=== PATIENT | female | born 1970 | race African-American/Black ===

== ENCOUNTER 2019-08-31 08:42 | Emergency (ER) | payer BC ==
[2019-08-31 09:00] VITALS: BP 129/97; PULSE 70
--- NOTE | 2019-08-31 09:31 | EDM.PDOC ---
ED HPI GENERAL MEDICAL PROBLEM - General Chief Complaint: Skin Complaint Stated Complaint: PT CLAIMS SKIN INFECTION R SIDE Time Seen by Provider: 08/31/19 08:45 - History of Present Illness INITIAL COMMENTS - FREE TEXT/NARRATIVE: History of present illness: [Presents with a tender rash to her right buttocks for last 3 days. There is been no fever chills no trauma she is never had this before there is an area of pustules and redness and erythema in a cluster approximately 3 x 4 cm on the right buttocks tender to touch there is no focal abscess. Nothing makes it better or worse no medical problems no other complaints] Review of systems: As per history of present illness and below otherwise all systems reviewed and negative. Past medical history: As per history of present illness and as reviewed below otherwise noncontributory. Surgical history: As per history of present illness and as reviewed below otherwise noncontributory. Social history: No reported history of drug or alcohol abuse. Family history: As per history of present illness and as reviewed below otherwise noncontributory. Physical exam: HEENT: Atraumatic, normocephalic, pupils reactive, negative for conjunctival pallor or scleral icterus, mucous membranes moist, throat clear, neck supple, nontender, trachea midline. Lungs: Clear to auscultation, breath sounds equal bilaterally, chest nontender. Heart: S1S2, regular, negative for clicks, rubs, or JVD. Abdomen: Soft, nondistended, nontender. Negative for masses or hepatosplenomegaly. Negative for costovertebral tenderness. Pelvis: Stable nontender. Genitourinary: Deferred. Rectal: Deferred. Extremities: Atraumatic, negative for cords or calf pain. Neurovascular unremarkable. Neuro: Awake, alert, oriented. Cranial nerves II through XII unremarkable. Cerebellum unremarkable. Motor and sensory unremarkable throughout. Exam nonfocal. Skin: Cluster of pustules on the skin over the right buttocks with a base of erythema and induration no focal abscess. Diagnostics: [] Therapeutics: [] Impression: Cellulitis [] Plan: Restarted on doxycycline wound care instructions are given follow-up with primary care [] Definitive disposition and diagnosis as appropriate pending reevaluation and review of above. - Related Data Allergies Allergy/AdvReac Type Severity Reaction Status Date / Time No Known Allergies Allergy Verified 08/31/19 08:57 Home Meds: Home Meds . 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 - Infectious Disease History Infectious Disease History: Reports: None Social & Family History - Tobacco Use Smoking Status *Q: Unknown Ever Smoked - Recreational Drug Use Recreational Drug Use: No ED ROS GENERAL - Review of Systems Review Of Systems: See Below ED EXAM, SKIN/RASH Exam: See Below Course - Vital Signs Last Recorded V/S: Last Vital Signs Temp 35.6 C L 08/31/19 08:58 Pulse 70 08/31/19 08:58 Resp 17 08/31/19 08:58 BP 129/97 H 08/31/19 08:58 Pulse Ox 98 08/31/19 08:58 Departure - Departure Time of Disposition: 09:28 Disposition: Home, Self-Care 01 Condition: Good Clinical Impression: Cellulitis Qualifiers: Site of cellulitis: buttock Qualified Code(s): L03.317 - Cellulitis of buttock - Discharge Information *PRESCRIPTION DRUG MONITORING PROGRAM REVIEWED*: Not Applicable *COPY OF PRESCRIPTION DRUG MONITORING REPORT IN PATIENT [place]FF[place]: Not Applicable Instructions: Cellulitis, Adult Referrals: PCP,None [Primary Care Provider] - Additional Instructions: The following information is given to patients seen in the emergency department who are being discharged to home. This information is to outline your options for follow-up care. We provide all patients seen in our emergency department with a follow-up referral. The need for follow-up, as well as the timing and circumstances, are variable depending upon the specifics of your emergency department visit. If you don't have a primary care physician on staff, we will provide you with a referral. We always advise you to contact your personal physician following an emergency department visit to inform them of the circumstance of the visit and for follow-up with them and/or the need for any referrals to a consulting specialist. The emergency department will also refer you to a specialist when appropriate. This referral assures that you have the opportunity for follow-up care with a specialist. All of these measure are taken in an effort to provide you with optimal care, which includes your follow-up. Under all circumstances we always encourage you to contact your private physician who remains a resource for coordinating your care. When calling for follow-up care, please make the office aware that this follow-up is from your recent emergency room visit. If for any reason you are refused follow-up, please contact the [facility] at and asked to speak to the emergency department charge nurse. [facility] [address] [place] [address] [address] [address] Sepsis Event Note - Evaluation Sepsis Screening Result: No Definite Risk - Focused Exam Vital Signs: Vital Signs Temp Pulse Resp BP Pulse Ox 08/31/19 08:58 35.6 C L 70 17 129/97 H 98 Date Exam was Performed: 08/31/19 Time Exam was Performed: 09:26
== END 2019-08-31 10:09 | disposition home or self-care (01) ==
LOC: MW.ED 08:42
DX: L03.317 Cellulitis of buttock (principal)
CPT/HCPCS: 99282; 99283

== ENCOUNTER 2022-02-24 11:35 | Emergency (ER) | payer BC ==
[2022-02-24] MEDS ORDERED: Ketorolac 60 MG/2 ML SDV IM ONE (13:01)
[2022-02-24 13:13] VITALS: BP 146/98; PULSE 58
== END 2022-02-24 13:31 | disposition home or self-care (01) ==
LOC: MW.ED 11:35
DX: S39.012A Strain of muscle, fascia and tendon of lower back, initial encounter (principal)
CPT/HCPCS: 96372; 99282; J1885

== ENCOUNTER 2024-10-18 13:56 | Emergency (ER) | payer BC ==
[2024-10-18 14:13] VITALS: BP 159/102; PULSE 67
[2024-10-18] MEDS: Diphtheria,Pertussis(Acell),Tetanus Vaccine 0.5 ML Syringe IM ONE (14:49)
== END 2024-10-18 15:57 | disposition home or self-care (01) ==
LOC: MW.ED 13:56
DX: S61.412A Laceration without foreign body of left hand, initial encounter (principal); Z75.3 Unavailability and inaccessibility of health-care facilities; Z23 Encounter for immunization; Z79.899 Other long term (current) drug therapy; W26.0XXA Contact with knife, initial encounter; Y93.89 Activity, other specified
CPT/HCPCS: 12001; 73130; 90471; 99283; J2003; 99282

== ENCOUNTER 2024-10-26 11:08 | Emergency (ER) | payer BC ==
[2024-10-26 11:20] VITALS: BP 147/103; PULSE 67
== END 2024-10-26 11:21 | disposition left against medical advice (07) ==
LOC: MW.ED 11:08
DX: S61.412D Laceration without foreign body of left hand, subsequent encounter (principal); X58.XXXD Exposure to other specified factors, subsequent encounter
CPT/HCPCS: 99281